=== PATIENT | male | born 2000 | race Caucasian/White ===

== ENCOUNTER 2019-04-18 22:29 | Emergency (ER) | payer BC ==
[~2019-04-18] VITALS: Ht 175.3 cm; Wt 86.2 kg
[2019-04-18] MEDS ORDERED: ALBU8HFA4 INH (22:46)
--- NOTE | 2019-04-18 23:10 | NUR ---
Dr Ascencio into eval patient.
[2019-04-18] MEDS ORDERED: AZITHROMYCIN 250 MG TABLET PO ONE (23:45)
[2019-04-18] MEDS ORDERED: AZITHROMYCIN 250 MG TABLET ONE (23:46)
[2019-04-18 23:53] VITALS: BP 118/82
--- NOTE | 2019-04-18 23:53 | NUR ---
Patient discharged to home in stable conditon. Written and verbal after care instructions given. Patient verbalizes understanding of instructions.
== END 2019-04-18 23:53 | disposition home or self-care (01) ==
LOC: ER 22:33
DX: J40 Bronchitis, not specified as acute or chronic (principal); Z79.899 Other long term (current) drug therapy
CPT/HCPCS: 71046; 93005; A4663; Q0144